=== PATIENT | male | born 1945 | race Caucasian/White ===

== ENCOUNTER 2017-06-18 12:48 | Emergency (ER) | payer MEDICARE, OTHER ==
[~2017-06-18] VITALS: Ht 176.5 cm; Wt 90.9 kg
[2017-06-18 12:53] VITALS: BP 127/68; PULSE 73; RESP 16; O2SAT 95
--- NOTE | 2017-06-18 13:29 | ED.REPORT ---
HPI-Chest Pain 40 and Over Date of Service Jun 18, 2017 ED Provider: Paloma Young MD The pt is a 71 y/o male w/ a hx of HTN, quintuple bypass surgery, and cardiac stents presenting to the ED via EMS due to chest pain onset 0730. The chest pain is described to being across the nipple line, achy, a pressure, 3-4/10 and began while the pt was swimming. The pt continued to swim, and returned home. The pain continued after the pt sat down and relaxed at home. The pain went away at roughly 1300 after taking 2 nitros. Denies nausea, vomiting, SOB, diaphoresis, neck pain, back pain, numbness in extremities, or fatigue. The pt describes the pain as being different than the cardiac symptoms he has had in the past. The pt reports that he had a stress test done last month and abnormalities were found. Nursing Notes Stated Complaint: Chest pain Chief Complaint: Chest Pain Nursing Notes Reviewed: Yes Allergies: Coded Allergies: meperidine (Verified Adverse Reaction, Severe, severe sedation, 06/18/17) General Time Seen by MD: 13:17 Chief Complaint Chest pain Hx Obtained From: Patient Arrived By: Ambulance Sudden in Onset?: Yes Onset Occurred: 5 - 8 hours ago Symptom Duration: Since onset Recent Healthcare: No recent hospitalization, Recent doctor visit Similar Sx Previous: No Past Medical History Past Medical History HTN Past Surgical History Quintuple bypass in 1998 3 cardiac stents in 2013 Smoking History Unknown if Ever Smoker Social History Other Social History: Good social support, Ambulatory Status Independent Review of Systems Constitutional: Denies: Fatigue Respiratory: Denies: Shortness of breath Cardiovascular: Reports: Chest pain GI: Denies: Nausea, Vomiting Musculoskeletal: Denies: Back pain, Neck pain Skin: Denies Diaphoresis Neurologic: Denies: Numbness Complete sys rev & neg: except as marked. Physical Exam Initial Vital Signs Vital Signs (First) Date Time Temp Pulse Resp B/P Pulse Ox O2 Delivery O2 Flow Rate FiO2 06/18/17 12:53 37.0 73 16 127/68 95 Room Air Initial VS: Reviewed, Vital signs normal Head / Eyes: Atraumatic, Normocephalic, PERRL ENT: Mucous membranes moist, Conjunctiva normal, No scleral icterus Neck: Supple, Non-tender, Full range of motion Extremities: Vascular intact, Neuro intact, No swelling, No tenderness Skin: Warm, Dry, No cyanosis Neurologic: Alert, Oriented, Nonfocal Psychiatric: Mood/affect normal, Behavior normal, Normal thought content General/Constitutional: Awake, Alert Respiratory / Chest: Atraumatic, Breath sounds NL, Breath sounds = bilat, No respiratory distress Cardiovascular: Heart rate NL, Regular rhythm, Heart sounds NL Abdomen: Atraumatic, Soft, Non-tender Interpretation & Diagnostics Lab Results Interpretation Result Diagram: 06/18/17 1310 06/18/17 1310 Test 06/18/17 13:10 06/18/17 14:55 White Blood Count 8.6th/mm3 (3.8-10.1) Red Blood Count 5.79mil/mm3 (4.40-5.80) Hemoglobin 17.3g/dL (13.8-17.2) Hematocrit 50.1% (41.0-50.0) Mean Corpuscular Volume 86.5fL (81-100) Mean Corpuscular Hemoglobin 29.9pg (27.0-35.0) Mean Corpuscular Hemoglobin Concent 34.5% (32.0-37.0) Red Cell Distribution Width 13.5% (12.3-15.4) Platelet Count 180bil/L (150-400) Neutrophils (%) (Auto) 66.2% (40-74) Lymphocytes (%) (Auto) 23.9% (14-46) Monocytes (%) (Auto) 7.8% (4-12) Eosinophils (%) (Auto) 1.3% (0-5) Basophils (%) (Auto) 0.6% (0-3) Sodium Level 137mEq/L (134-144) Potassium Level 3.8mEq/L (3.5-5.2) Chloride Level 95mEq/L (97-108) Carbon Dioxide Level 24mmol/L (18-29) Blood Urea Nitrogen 17mg/dL (8-27) Creatinine 1.05mg/dL (0.76-1.27) Estimat Glomerular Filtration Rate 74mL/min (>59) Glucose Level 104mg/dL (60-99) Calcium Level 10.0mg/dL (8.5-10.1) Magnesium Level 2.0mg/dL (1.6-2.6) Total Bilirubin 0.8mg/dL (0.0-1.2) Aspartate Amino Transf (AST/SGOT) 25U/L (0-50) Alanine Aminotransferase (ALT/SGPT) 20U/L (0-44) Alkaline Phosphatase 88U/L (25-160) Total Protein 8.3g/dL (6.4-8.4) Albumin 4.7g/dL (3.4-5.0) Troponin T < 0.010ug/L (0.0-0.011) ECG Interpretation ECG Interpretation: Rate 68 A-fib RBBB No acute ST wave changes Time: 13:00 Interpreted by: ED physician X-Ray Chest Interpretation Chest Xray Interpretation: IMPRESSION: Sternotomy wires, presumed prior CABG, source of chest pain is not found. Dictated by: Allan Machuca M.D. on 06/18/2017 at 13:40 Approved by: Allan Machuca M.D. on 06/18/2017 at 13:40 View: Portable, 1 view Interpretation / Wet Read by: Interpret - Radiologist Re-Eval/Medical Decision Med Decision/Clinical Course This patient is high risk and that he has had coronary artery disease and had an abnormal stress test recently however his pain currently is unlike his prior cardiac pain. Is also reassuring that he had a 6 and 8 hour troponin was negative. Given it is unlike his prior chest pain he will be discharged home. He was told he must return if he has recurrent symptoms and is to contact his calender supervisor. A list of differential diagnoses considered were musculoskeletal pain, reflux, acute coronary syndrome, pneumonia, and pulmonary embolus. Counseled Regarding: Diagnosis, Lab results, Need for follow-up, When/why to return to ED Discharge & Departure Primary Impression: Chest pain Chest pain type: unspecified Qualified Code: R07.9 - Chest pain, unspecified Disposition: Home Discharge Condition All VS Reviewed: Yes Condition: Stable Patient Instructions: Chest Pain (ED) Additional Instructions: You do not shown signs of heart attack on EKG or in your blood. This could still be your heart given your recent test. You need to contact your calender supervisor on Tuesday and let him know about this episode. If you have any chest pain please call 911 and return to the emergency department. Referrals: [facility] Scribe Attestation Portions of this note were transcribed by Héctor Conn. IDr. Young personally performed the history, physical exam and medical decision-making; I reviewed and confirmed the accuracy of the information in the transcribed note. copies to: [facility] Paloma Young MD Jun 18, 2017 13:29 Héctor Conn Jun 18, 2017 13:41
[2017-06-18 13:35] LABS: BASOPHILS % (AUTO) 0.6 % (0-3); EOSINOPHILS % (AUTO) 1.3 % (0-5); MONOCYTES % (AUTO) 7.8 % (4-12); Mean Corpuscular Hemoglobin 29.9 pg (27.0-35.0); Mean Corpuscular Volume 86.5 fL (81-100); NEUTROPHILS % (AUTO) 66.2 % (40-74); Platelet Count 180 bil/L (150-400)
--- NOTE | 2017-06-18 13:41 | DRSVH ---
PROCEDURE: X-RAY CHEST ONE VIEW, PORTABLE ([id number]) INDICATIONS: Chest pain TECHNIQUE: One view of the chest was acquired. COMPARISON: None. FINDINGS: Surgical changes and devices: Sternotomy wires, prior CABG presumed. Lungs and pleura: No pleural effusions or pneumothorax. Lungs are clear. Mediastinum: Mediastinal contours appear normal. Heart size is normal. Bones and chest wall: No suspicious bony lesions. Overlying soft tissues appear unremarkable. IMPRESSION: Sternotomy wires, presumed prior CABG, source of chest pain is not found. Dictated by: Allan Machuca M.D. on 06/18/2017 at 13:40 Approved by: Allan Machuca M.D. on 06/18/2017 at 13:40
[2017-06-18 13:45] LABS: TROPONIN T < 0.010 ug/L (0.0-0.011)
[2017-06-18] MEDS ORDERED: 0.9% Sodium Chloride 500 ML IV ONE (14:15)
[2017-06-18 14:34] VITALS: BP 109/84; PULSE 83; RESP 19; O2SAT 94
[2017-06-18 16:00] VITALS: BP 126/78; PULSE 73; RESP 17; O2SAT 93
== END 2017-06-18 15:57 | disposition home or self-care (01) ==
LOC: SED 12:48 → EDBD 12:48 → SED 15:57
DX: R07.89 Other chest pain (principal); I10 Essential (primary) hypertension; Z95.5 Presence of coronary angioplasty implant and graft; Z88.5 Allergy status to narcotic agent
CPT/HCPCS: 36415; 71010; 80053; 83735; 84484; 85025; 93005; 96360; 99285; J7040